=== PATIENT | female | born 1995 | race Caucasian/White ===

== ENCOUNTER → 2016-07-22 | Outpatient (CLI) | payer OTHER ==
[2016-07-22 18:03] LABS: CH 29.9; CHCM 33.5; HCT 35.3 % (34.0-46.0); HDW 2.86; HGB 11.7 gm/dL (11.4-16.0); MCH 29.6 pg (25.0-35.0); MCV 89.7 fL (80.0-100.0); Mean Platelet Volume 8.1; RBC 3.94 m/uL (3.80-5.40); RDW 14.6 % (11.5-15.5); WBC 2.7 k/uL (3.8-10.6)
[2016-07-22 18:11] LABS: ALT 63 U/L (9-52); AST 82 U/L (14-36); Alkaline Phosphatase 50 U/L (38-126); Anion Gap 10 mmol/L; Blood Urea Nitrogen 15 mg/dL (7-17); Calcium 9.6 mg/dL (8.4-10.2); Carbon Dioxide 25 mmol/L (22-30); Chloride 108 mmol/L (98-107); Glucose 100 mg/dL (74-99); Non-African American GFR(MDRD) >60 (>60 ml/min/1.73 sqM); Potassium 4.2 mmol/L (3.5-5.1); Sodium 143 mmol/L (137-145); Total Bilirubin 0.9 mg/dL (0.2-1.3); Total Protein 7.4 g/dL (6.3-8.2)
[2016-07-22 18:27] LABS: Follicle Stimulating Hormone 1.3 mIU/mL; Prolactin 21.3 ng/mL (3.0-18.6)
[2016-07-22 18:50] LABS: Amorphous Sediment,Urine Rare /hpf; Appearance,Urine Clear (Clear); Bacteria,Urine Rare /hpf; Bilirubin,Urine Negative (Negative); Glucose,Urine (UA) Negative (Negative); Ketones,Urine Negative (Negative); Leukocyte Esterase,Urine Moderate (Negative); Mucus,Urine Occasional /hpf; Nitrite,Urine Negative (Negative); Particle Count 7566; Protein,Urine Trace (Negative); RBC,Urine 2 /hpf (0-5); Specific Gravity,Urine 1.021 (1.001-1.035); Squamous Epithelial Cell,Urine <1 /hpf (0-4); UA Billing (MACRO vs. MICRO) MICRO; Urobilinogen,Urine <2.0 mg/dL (<2.0); WBC,Urine 15 /hpf (0-5)
[2016-07-22 18:57] LABS: Hemoglobin A1C 4.8 % (4.2-6.1)
[2016-07-24 12:39] LABS: Growth Hormone, Human <0.1 ng/mL (<10)
== END | disposition home or self-care (01) ==
LOC: LABWHC1 17:28
PROVIDERS: ATTEND Family Medicine
DX: E23.0 Hypopituitarism (principal); H54.42 Blindness, left eye, normal vision right eye
CPT/HCPCS: 36415; 80053; 81001; 82024; 82085; 82088; 82533; 82672; 83001; 83002; 83003; 83036; 83970; 84144; 84146; 84439; 84443; 85027

== ENCOUNTER → 2021-05-05 | Outpatient (CLI) | payer OTHER ==
--- NOTE | 2021-05-05 13:28 | BD ---
EXAMINATION TYPE: Axial Bone Density DATE OF EXAM: 05/05/2021 COMPARISON: NONE CLINICAL HISTORY: Height: 5 FT 5 IN Weight: 165 FRAX RISK QUESTIONS: Alcohol (3 or more units per day): NO Family History (Parent hip fracture): NO Glucocorticoids (More than 3mos): YES (Ex: prednisone, prednisolone, methylprednisolone, dexamethasone, and hydrocortisone). History of Fracture in Adulthood: NO Secondary Osteoporosis: 1. Type 1 Diabetes: NO 2. Hyperthyroidism: NO 3. Menopause before 45: NA 4. Malnutrition: NO 5. Chronic liver disease: NO Rheumatoid Arthritis: NO Current Tobacco Use: NO RISK FACTORS HISTORY OF: Surgery to Spine/Hip(right/left)/Wrist (right/left): APRIL HIP WITH PINS When: AGE 15 Family History of Osteoporosis: NO Active: NO Diet low in dairy products/other sources of calcium: NO Postmenopausal woman: NO Take estrogen and/or progesterone medications: ON CONTROL Lost more than 2 inches in height since high school: NO Frequent falls: NO Poor Health: GOOD Hyperparathyroidism: NO Adrenal Insufficiency: NO MEDICATIONS: Prednisone or other steroids: YES How Lon-2 YEARS Thyroid Medications: YES Which medication: SYNTHROID How Lon-2 YEARS Additional Medications: CONTROL, STEROIDS, THYROID MEDS Additional History: PANHYPOPITUITARISM EXAM MEASUREMENTS: Bone mineral densitometry was performed using the [employer] Digital System. Bone mineral density as measured about the Lumbar spine is: ----- L1-L4(G/cm2): 0.926 T Score Values are as follows: ----- L2: -2.2 ----- L3: -2.0 ----- L4: -2.4 ----- L1-L4: -2.1 BASELINE Bone mineral density about the L Wrist (g/cm2): 0.550 T Score values are as follows: -----Dist. R+U: -2.9 -----Prox. R+U: -2.0 -----Radius total: -2.1 BASELINE IMPRESSION: Osteoporosis (T Score less than -2.5). There is increased fracture risk and therapy is usually indicated based on age. Re-Screen 1-2 years. NOTE: T-SCORE=SD OF THE YOUNG ADULT MEAN.
== END | disposition home or self-care (01) ==
LOC: RADBDWWP 10:33
PROVIDERS: ATTEND Internal Medicine Hematology & Oncology
DX: M81.0 Age-related osteoporosis without current pathological fracture (principal); M85.89 Other specified disorders of bone density and structure, multiple sites; E23.0 Hypopituitarism
CPT/HCPCS: 77080

== ENCOUNTER → 2024-07-10 | Outpatient (CLI) | payer OTHER ==
--- NOTE | 2024-07-10 17:20 | BD ---
EXAMINATION TYPE: Axial Bone Density DATE OF EXAM: 07/10/2024 CLINICAL HISTORY: 29 years old Female. ICD-10 CODE: M85.88 OT DISRD OF BONE DENSITY AND STRUCTURE , Additional History: Height: 65.25 Weight: 169.3 FRAX RISK QUESTIONS: Alcohol (3 or more units per day): no Family History (Parent hip fracture): no Glucocorticoids (More than 3mos): yes past 5-6 years (Ex: prednisone, prednisolone, methylprednisolone, dexamethasone, and hydrocortisone). History of Fracture in Adulthood: no Secondary Osteoporosis: 1. Type 1 Diabetes: no 2. Hyperthyroidism: no 3. Menopause before 45: na 4. Malnutrition: no 5. Chronic liver disease: no Rheumatoid Arthritis: no Current Tobacco Use: no RISK FACTORS HISTORY OF: Hip Fracture (Right/Left): no Spine Fracture: no History of Wrist Fracture: no Surgery to Spine/Hip(right/left)/Wrist (right/left): Bilateral hip surgeries When: 2011 MEDICATIONS: Thyroid Medications: Levothyroxine How Long: past 6 years Osteoporosis Medications: no EXAM MEASUREMENTS: Bone mineral densitometry was performed using the [employer] System. Bone mineral density as measured about the Lumbar spine is: ----- L1-L4(G/cm2): 0.937 T Score Values are as follows: ----- L1: -2.1 ----- L2: -2.4 ----- L3: -1.7 ----- L4: -2.1 ----- L1-L4: -2.0 Z Score Values are as follows: ----- L1: -2.5 ----- L2: -2.8 ----- L3: -2.1 ----- L4: -2.5 ----- L1-L4: -2.4 Bone mineral density has: increased 1.2 % since study of: 05/05/2021 Bone mineral density about the L Wrist (g/cm2): 0.528 T Score values are as follows: -----Dist. R+U: -3.0 -----Prox. R+U: -2.0 -----Radius total: -2.4 Z Score values are as follows: -----Dist. R+U: -3.0 -----Prox. R+U: -2.0 -----Radius total: -2.4 Bone mineral density has: unchanged 0.0 % since study of: 05/05/2021 FRAX%s: The graph provided illustrates a na% chance for a major osteoporotic fx and a na% chance for the hips probability for fx in 10 years time. IMPRESSION: Z score values are utilized due to patient's age. There is diminished bone mineral density for patien t's age. [facility], , 07/10/2024 5:18 PM
== END | disposition home or self-care (01) ==
LOC: RADBDWWP 08:43
PROVIDERS: ATTEND Internal Medicine Hematology & Oncology
DX: M81.0 Age-related osteoporosis without current pathological fracture (principal); M85.89 Other specified disorders of bone density and structure, multiple sites; D61.818 Other pancytopenia; E23.0 Hypopituitarism; Z79.890 Hormone replacement therapy
CPT/HCPCS: 77080